=== PATIENT | female | born 1945 | race Caucasian/White ===

== ENCOUNTER → 2017-11-30 | Outpatient (CLI) | payer MEDICARE, OTHER | END | disposition home or self-care (01) | LOC: GMAB 10:10 | PROVIDERS: ATTEND Family Medicine | DX: I10 Essential (primary) hypertension (principal) ==

== ENCOUNTER → 2017-12-09 | Outpatient (CLI) | payer MEDICARE, OTHER ==
--- NOTE | 2017-12-22 10:53 | MAM ---
EXAM DESCRIPTION: 3D Screening BILATERAL : Digital Mammography. CLINICAL HISTORY: 72 years Female SCREENING . No complaints. Mother with breast cancer. Postmenopausal. No HRT. COMPARISON: 2-D digital bilateral diagnostic examination 03/01/2014. No prior reports available. TECHNIQUE: Bilateral CC and MLO projection full-field images, 3-D tomosynthesis digital mammographic technique. Also bilateral synthesized CC/ MLO full-field images. CAD not utilized. Additional images were needed due to the large size of the breasts bilaterally. FINDINGS: The breast parenchymal density pattern is: Scattered areas of fibroglandular density. No skin thickening or nipple retraction bilateral vascular calcifications. Bilateral solitary microcalcifications. Bilateral axillary lymph nodes. No focal, stellate mass or density, focal asymmetry , and no suspicious microcalcifications bilaterally. Stable mammograms compared to prior study, taking into account differences in mammographic technique IMPRESSION: BI-RADS CATEGORY: 2 - BENIGN FINDINGS. FOLLOW UP: Routine digital bilateral screening, one year interval from November 2017. Written communication explaining the IMPRESSION and follow-up, will be mailed to the patient and referring health care provider. According to the [employer], yearly mammograms are recommended starting at age 40 and continuing as long as a woman is in good health. Any breast change noted on a breast self-exam should be reported promptly to the patient's healthcare provider. Breast MRI is recommended for women with an approximately 20-25% or greater lifetime risk of breast cancer, including women with a strong family history of breast or ovarian cancer and women who have been treated for Hodgkin's disease. A negative mammographic report should not delay tissue diagnosis in patients with significant clinical history or physical findings. Extremely dense breast tissue limits the sensitivity of digital mammography. Electronically signed by: Bryson Ramachandran MD 12/22/2017 10:52 AM [facility]
== END ==
LOC: MAMMO 10:08
PROVIDERS: ATTEND Family Medicine
DX: Z12.31 Encounter for screening mammogram for malignant neoplasm of breast (principal)

== ENCOUNTER → 2017-12-23 | Outpatient (CLI) | payer MEDICARE, OTHER | LOC: GMAB 18:58 | PROVIDERS: ATTEND Family Medicine | DX: R94.6 Abnormal results of thyroid function studies (principal) ==

== ENCOUNTER 2018-07-11 05:36 | Day surgery (SDC) | payer MEDICARE, OTHER ==
[2018-07-11] MEDS ORDERED: MIDAZOLAM INJ 2 MG/2 ML VIAL ONE ×2 (06:38→10:49)
[2018-07-11] MEDS ORDERED: PROPARACAINE 0.5% OPHTH SOL 15 ML BTTL ONE (08:52)
[2018-07-11] MEDS ORDERED: TROP 1%/CYCLOPEN 1%/PHENYL 2% DROPS ONE (08:52)
[2018-07-11] MEDS ORDERED: LIDOCAINE 1% MPF 5 ML VIAL INJ ONE (11:02)
[2018-07-11] MEDS ORDERED: DEXAMETHASONE 0.1% OPHTH SOL 1 DROP RIGHT_EYE ONE ×2 (11:04→11:14)
[2018-07-11] MEDS ORDERED: TOBRAMYCIN SULF 0.3 % OPHT SOL 1 DROP RIGHT_EYE ONE ×2 (11:04→11:14)
[2018-07-11] MEDS ORDERED: BRIMONIDINE 0.2% OPHTH DROPS RIGHT_EYE ONE ×2 (11:05→11:14)
== END 2018-07-11 12:00 ==
LOC: AMB 05:36
PROVIDERS: ATTEND Ophthalmology
DX: H25.11 Age-related nuclear cataract, right eye (principal); I10 Essential (primary) hypertension; K21.9 Gastro-esophageal reflux disease without esophagitis; E66.9 Obesity, unspecified; M06.9 Rheumatoid arthritis, unspecified
CPT/HCPCS: 00142; 66984; J2250

== ENCOUNTER → 2018-12-07 | Outpatient (CLI) | payer MEDICARE, OTHER | LOC: GMAE 11:07 | PROVIDERS: ATTEND Family Medicine | DX: I10 Essential (primary) hypertension (principal) ==

== ENCOUNTER → 2018-12-09 | Outpatient (CLI) | payer MEDICARE, OTHER ==
[~2018-12-09] MED LIST: ALBUTEROL SULFATE 2.5 MG/3 ML VIAL NEB ONE
== END ==
LOC: RESP 10:02
PROVIDERS: ATTEND Family Medicine
DX: R06.02 Shortness of breath (principal)
CPT/HCPCS: 94060; J7611

== ENCOUNTER 2019-01-30 05:25 | Day surgery (SDC) | payer MEDICARE, OTHER ==
[2019-01-30] MEDS ORDERED: PROPARACAINE 0.5% OPHTH SOL 15 ML BTTL ONE (05:43)
[2019-01-30] MEDS ORDERED: TROP 1%/CYCLOPEN 1%/PHENYL 2% DROPS ONE (05:43)
[2019-01-30] MEDS ORDERED: MOXIFLOXACIN HCL (OPHTH) 1 DROP DROPS ONE (05:43)
[2019-01-30] MEDS ORDERED: MIDAZOLAM INJ 2 MG/2 ML VIAL ONE (06:40)
[2019-01-30] MEDS ORDERED: fentaNYL CITRATE INJ 50 MCG/ML AMP ONE (06:40)
[2019-01-30] MEDS ORDERED: PROPARACAINE 0.5% OPHTH SOL 15 ML BTTL LEFT_EYE ONE (08:10)
[2019-01-30] MEDS ORDERED: LIDOCAINE 1% 2 ML VIAL INJ ONE (08:19)
[2019-01-30] MEDS ORDERED: DEXAMETHASONE 0.1% OPHTH SOL 1 DROP LEFT_EYE ONE (08:30)
[2019-01-30] MEDS ORDERED: BRIMONIDINE 0.2% OPHTH DROPS LEFT_EYE ONE (08:30)
[2019-01-30] MEDS ORDERED: TOBRAMYCIN SULF 0.3 % OPHT SOL 1 DROP LEFT_EYE ONE (08:30)
== END 2019-01-30 09:15 | disposition home or self-care (01) ==
LOC: AMB 05:25
PROVIDERS: ATTEND Ophthalmology
DX: H25.12 Age-related nuclear cataract, left eye (principal); I10 Essential (primary) hypertension; K21.9 Gastro-esophageal reflux disease without esophagitis; E66.9 Obesity, unspecified; G47.30 Sleep apnea, unspecified; Z79.899 Other long term (current) drug therapy
CPT/HCPCS: 00142; 66984; J2250; J3010

== ENCOUNTER 2019-07-11 12:09 | Emergency (ER) | payer MEDICARE, OTHER ==
--- NOTE | 2019-07-11 13:03 | ED.PDOC ---
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 SX CURRENTLY RESOLVED. 02 88% ON RA IN ER, 93 ON 2L NC. USES CPAP AT NIGHT FOR FAISAL. AMBULATES WITH WALKER MORBIDLY OBESE. NO SMOKING. Timing/Duration: 1 hour Severity: severe Activities at Onset: none Possible Cause: unknown cause Improving Factors: rest Associated Symptoms: chest pain Allergies/Adverse Reactions: Allergies NO KNOWN ALLERGY Allergy (Verified 07/11/19 12:35) Home Medications: Ambulatory Orders Fosinopril Sodium 40 mg PO DAILY 07/11/19 Furosemide [Lasix] 20 mg PO DAILY 07/11/19 Hydrochlorothiazide 25 mg PO DAILY 07/11/19 Pantoprazole Tablet [Protonix] 40 mg PO ACBK 07/11/19 Potassium Chloride [K-Tab] 10 meq PO DAILY 07/11/19 Review of Systems - Review of Systems Constitutional: Denies: chills, fever EENTM: Denies: blurred vision, nose congestion Respiratory: States: short of breath. Denies: cough, stridor, wheezing Cardiology: States: chest pain. Denies: palpitations, syncope Gastrointestinal/Abdominal: Denies: abdominal pain, nausea Genitourinary: States: no symptoms reported Musculoskeletal: States: no symptoms reported Skin: States: no symptoms reported Neurological: Denies: headache, numbness, paresthesia Endocrine: States: no symptoms reported Hematologic/Lymphatic: States: no symptoms reported All other Systems: Reviewed and Negative Past Medical History (General) - Patient Medical History Hx Stroke: No Hx Cardiac Disorders: Yes Hx Congestive Heart Failure: No Hx Diabetes: No Hx Gastroesophageal Reflux: Yes Hx Cancer: Yes - Uterine Hx MRSA: No Surgical History: cholecystectomy, Hysterectomy - Vaccination History Hx Influenza Vaccination: Yes Hx Pneumococcal Vaccination: Yes - Social History Hx Tobacco Use: No Family Medical History - Family History Mother Family History: Unknown Living Status: Unknown Physical Exam - Physical Exam General Appearance: Alert, No apparent distress Eyes, Ears, Nose, Throat Exam: PERRL/EOMI, normal ENT inspection, TMs normal, pharynx normal Neck: non-tender, full range of motion, supple, other - NO BRUIT. POS JVD. 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 INITIAL TROP 0.06. EKG SINUS TACHY W/ 1 PVC. OBTAINING 2ND TROP AND EKG. PT WILL BE IN HOSPITAL SEVERAL MORE HRS FOR CP R/U, IN ER, FLOOR, OR TRANSFERRED. 07/11/19 16:26 TROPONIN INCREASED FROM 0.06 TO 0.5. I AM ATTEMPTING TO GET PT TRANSFERRED TO A HOSPITAL WITH CARDIOLOGY. I CALLED [facility] AND THEY RECOMMENDED SINCE PT HAS A CASTING INSPECTOR IN (DR. FAULKNER, [facility] IN [place]) THAT WE CALL HIM, THEN TRANSFER ACCORDINGLY. WE ARE CURRENTLY ATTEMPTING TO GET HIM OR COVERAGE ON THE PHONE. PT IS CHEST PAIN-FREE IN ER SO NO NTG OR MORHPHINE INDICATED. SINCE THERE IS RISK OF NON-STEMI, I AM GIVING ASA 325 CHEW TAB AND ATORVASTATIN 80 MG PO X 1. 07/11/19 16:[address] FAULKNER ON THE PHONE. HE IS AT [facility] IN [facility] [place], THUS WE ARE IN THE PROCESS OF CONTACTING THE [facility] TRANSFER LINE AND THEN GET HER TRANSFERRED. WE CALLED [facility] AND TALKED TO TRANSFER LINE. WE ARE JUST AWAITING HOSPITALIST TO CALL ME BACK TO GIVE TRANSFER ACCEPTANCE. 07/11/19 17:47 WE CALLED BACK TO [facility] TO CHECK ON THE DELAY AND REMIND THEM WE ARE CONCERNED ABOUT ACUTE CORONARY SYNDROME WITH THE RISING TROPONIN AND THAT WE WANT TO EXPEDITE THE PATIENT'S CARDIAC CARE. [facility] SAID THEY HAVE PAGED THE HOSPITALIST AND THAT THEY WILL CALL US RIGHT BACK. 07/11/19 18:07 [facility] CALLED BACK. I SPOKE WITH DR. MCCRACKEN, HOSPITALIST. HE IS ADMITTING HER TO PCU FOR POSSIBLE NSTEMI. WE ARE INITIATING THE TRANSFER VIA EMS PRESENTLY. THANK YOU, THR, FOR ACCEPTING FURTHER CARE OF THIS PATIENT. 07/11/19 18:29 Departure - Departure Clinical Impression: Elevated troponin, Chest pain at rest, Hypoxia, Jugular venous distension (JVD), Morbid obesity with BMI of 45.0-49.9, adult, Edema of both lower extremities, Neutrophilic leukocytosis, Sinus tachycardia by electrocardiogram Dyspnea Qualifiers: Dyspnea type: shortness of breath Qualified Code(s): R06.02 - Shortness of breath; R06.00 - Dyspnea, unspecified; R06.01 - Orthopnea Disposition: Transfer to Hospital Condition: Serious Departure Forms: ED Discharge - Pt. Copy, Patient Portal Self Enrollment Referrals: Jose Rodriguez MD [Primary Care Provider] - 1-2 Weeks Home Medications: Ambulatory Orders Fosinopril Sodium 40 mg PO DAILY 07/11/19 Furosemide [Lasix] 20 mg PO DAILY 07/11/19 Hydrochlorothiazide 25 mg PO DAILY 07/11/19 Pantoprazole Tablet [Protonix] 40 mg PO ACBK 07/11/19 Potassium Chloride [K-Tab] 10 meq PO DAILY 07/11/19 Transfer to Outside Facility - Transfer Information Accepting Provider:: DR. MCCRACKEN Accepting Facility: [facility] [place] Reason for Transfer: specialized care not available
--- NOTE | 2019-07-11 13:05 | RAD ---
EXAM DESCRIPTION: Chest,1 View CLINICAL HISTORY: 73 years Female, shortness of breath COMPARISON: 03/20/2009 IMPRESSION: The heart is enlarged, with central pulmonary vascular congestion. Perihilar interstitial thickening, which may be secondary to CHF with interstitial edema versus an atypical infectious/inflammatory process. No confluent airspace consolidation, large pleural effusion, or pneumothorax. No acute osseous abnormality. Electronically signed by: Len Ruggiero MD 07/11/2019 1:03 PM CDT
[2019-07-11 18:06] VITALS: BP 112/74
[2019-07-11] MEDS ORDERED: ASPIRIN (CHEWABLE) 81 MG TAB PO ONE (18:14)
[2019-07-11] MEDS ORDERED: ATORVASTATIN 20 MG TAB PO ONE (18:16)
[2019-07-11 18:59] VITALS: TEMP 97.5; O2SAT 96
== END 2019-07-11 18:59 | disposition short-term general hospital (02) ==
LOC: ER 12:09
DX: R07.89 Other chest pain (principal); R06.02 Shortness of breath; R79.89 Other specified abnormal findings of blood chemistry; R09.02 Hypoxemia; I87.8 Other specified disorders of veins; R00.0 Tachycardia, unspecified; E66.01 Morbid (severe) obesity due to excess calories; R60.0 Localized edema; D72.828 Other elevated white blood cell count; G47.33 Obstructive sleep apnea (adult) (pediatric); I51.9 Heart disease, unspecified; K21.9 Gastro-esophageal reflux disease without esophagitis; Z68.42 Body mass index [BMI] 45.0-49.9, adult; Z85.42 Personal history of malignant neoplasm of other parts of uterus; Z90.49 Acquired absence of other specified parts of digestive tract; Z90.710 Acquired absence of both cervix and uterus; Z79.899 Other long term (current) drug therapy

== ENCOUNTER → 2019-12-07 | Outpatient (CLI) | payer MEDICARE, OTHER | LOC: SL 20:20 | PROVIDERS: ATTEND Internal Medicine Critical Care Medicine | DX: G47.33 Obstructive sleep apnea (adult) (pediatric) (principal); I26.92 Saddle embolus of pulmonary artery without acute cor pulmonale; I10 Essential (primary) hypertension; K21.9 Gastro-esophageal reflux disease without esophagitis; J30.1 Allergic rhinitis due to pollen ==

== ENCOUNTER → 2020-01-31 | Outpatient (CLI) | payer MEDICARE, OTHER | DX: I26.99 Other pulmonary embolism without acute cor pulmonale (principal) ==

== ENCOUNTER → 2020-02-05 | Outpatient (CLI) | payer MEDICARE, OTHER | LOC: GMAE 10:33 | PROVIDERS: ATTEND Family Medicine | DX: I10 Essential (primary) hypertension (principal) ==